=== PATIENT | female | born 1980 | race Caucasian/White ===

== ENCOUNTER 2021-01-27 13:48 | Emergency (ER) | payer OTHER ==
[~2021-01-27 13:48] MED LIST: BACLOFEN 10MG T10 MG PO; MEDROL 4MG DOSEP4 MG PO; NAPROXEN500 MG PO; SYNTHROID 0.1M0.1 MG PO
[2021-01-27 14:51] LABS: HCT 41.1 % (37.0-47.0); HGB 13.1 g/dl (12.5-16.0); LYMPHOCYTE 32.8 % (15-48); MCH 29.2 pg (25.0-31.0); MCHC 31.9 g/dL (32.0-36.0); MCV 91.7 fL (78.0-100.0); MONOCYTE 8.2 % (0-12); MPV 10.3 fL (6.0-9.5); NEUTROPHIL 55.5 % (41-80); NRBC 0; PLT 278 K/uL (150-400); RBC 4.48 M/uL (4.20-5.40); RDW 12.9 % (11.5-14.0); WBC 7.7 K/uL (4.0-10.5)
[2021-01-27 15:20] LABS: ALBUMIN 3.7 g/dL (3.4-5.0); BILIRUBIN - TOTAL 0.2 mg/dL (0.2-1.0); BUN/CREAT RATIO (CALC) 22.5 RATIO; CREATININE 0.8 mg/dL (0.51-0.95); GLOBULIN (CALCULATION) 3.7 g/dL; TOTAL PROTEIN 7.4 g/dL (6.4-8.2)
== END 2021-01-27 16:34 | disposition home or self-care (01) ==
LOC: FER 13:48
PROVIDERS: Physician Assistant
DX: R07.1 Chest pain on breathing (principal); S30.1XXA Contusion of abdominal wall, initial encounter; R42 Dizziness and giddiness; R11.0 Nausea; I10 Essential (primary) hypertension; Z79.899 Other long term (current) drug therapy; X58.XXXA Exposure to other specified factors, initial encounter
CPT/HCPCS: 36415; 71045; 80053; 84484; 85025; 93005